=== PATIENT | male | born 1960 | race African-American/Black ===

== ENCOUNTER 2017-05-01 14:23 | Emergency (ER) | payer BC ==
[~2017-05-01] VITALS: Ht 182.9 cm; Wt 79.4 kg
--- NOTE | 2017-05-01 15:35 | RAD ---
Indication pain associated with an injury. AP oblique and lateral views of the right knee were obtained as well as a sunrise view. The patella is not well seen on the sunrise view. There is a somewhat" high riding" patella. This likely reflects a normal variant. If a tendon rupture is clinically suspect an MRI examination would be advised. A definite acute bony abnormality is not seen
[2017-05-01 15:47] VITALS: BP 124/77
--- NOTE | 2017-05-01 16:00 | PHYS DOC ---
Past Medical History Past Medical History: No Pertinent History Past Surgical History: No Surgical History Alcohol Use: Occasionally Drug Use: None Adult General Chief Complaint Chief Complaint: KNEE INJURY HPI HPI Patient is a 57 year old male who presents with right knee injury. The patient states just prior to arrival an aerator fell against his thigh just above his knee. He had sudden onset of severe patellar pain. He denies other injuries. He was able to bear weight. No previous knee surgery. Review of Systems Review of Systems Constitutional: Denies fever or chills Respiratory: Denies cough or shortness of breath Cardiovascular: Denies chest pain GI: Denies abdominal pain, nausea, vomiting Musculoskeletal: Reports knee pain Integument: Denies rash Neurologic: Denies headache Allergies Allergies Allergies Coded Allergies Type Severity Reaction Last Updated Verified No Known Drug Allergies 05/01/17 No Physical Exam Physical Exam Constitutional: Well developed, well nourished, no acute distress, non-toxic appearance. HENT: Normocephalic, atraumatic, bilateral external ears normal, oropharynx moist, nose normal. Eyes: conjunctiva normal, no discharge. Cardiovascular: no edema. Lungs & Thorax: no respiratory distress. Abdomen: nondistended. Skin: Warm, dry, no erythema, no rash. Extremities: right knee moderate effusion with high riding patella otherwise no deformity, tenderness over medial & lateral joint lines, negative anterior & posterior drawer, stable to valgus/varus stress, dp/pt 2+, sensation intact to foot, unable to straight leg raise. Neurologic: Alert and oriented X 3, no focal deficits noted. Psychologic: Affect normal, judgement normal, mood normal. Current Patient Data Vital Signs Vital Signs Date Time Temp Pulse Resp B/P (MAP) Pulse Ox O2 Delivery O2 Flow Rate FiO2 05/01/17 15:47 76 124/77 (93) 98 Room Air 05/01/17 14:35 98.2 16 98.2 EKG EKG [] Radiology/Procedures Radiology/Procedures PROCEDURE: KNEE RIGHT 4V Indication pain associated with an injury. AP oblique and lateral views of the right knee were obtained as well as a sunrise view. The patella is not well seen on the sunrise view. There is a somewhat" high riding" patella. This likely reflects a normal variant. If a tendon rupture is clinically suspect an MRI examination would be advised. A definite acute bony abnormality is not seen DICTATED and SIGNED BY: SHARITA PAIZ MD DATE: 05/01/17 1530[] Course & Med Decision Making Course & Med Decision Making Pertinent Labs and Imaging studies reviewed. (See chart for details) The patient presents with right knee pain. He had exam concerning for patellar tendon injury which is consistent with x-ray findings. The patient declined pain medication here or at time of discharge. Discussed briefly with Dr. Nash , no need for additional imaging at this time & okay to bear weight as tolerated. public health sanitarian technician placed knee immobilizer, remains neurovascularly intact after splint placement as confirmed by me. He was given crutches for PRN use. Recommend rest, ice, elevate, weight bearing as tolerated, follow up in orthopedic clinic in 1 week. Come back for neurovascular compromise or otherwise worsening condition. Discharged home in stable condition. [] Dragon Disclaimer Dragon Disclaimer This electronic medical record was generated, in whole or in part, using a voice recognition dictation system. Departure Departure Impression: Primary Impression: Patellar tendon rupture Disposition: ADMITTED INPATIENT Condition: STABLE Referrals: NO PCP (PCP) YAS NASH II, MD Patient Instructions: Patellar Tendon Tear/Disruption with Rehab-Sports[facility] Additional Instructions: You were seen in the emergency department today for knee injury. You have a tendon rupture of your patellar tendon. You may need to have surgery. Please rest, apply ice, elevate, wear the brace, use crutches if needed. You can bear weight if able. Take tylenol or ibuprofen for pain. Follow up with Dr. Nash in the orthopedic clinic in 1 week. Come back for numbness or weakness in your leg, any otherwise worsening condition. NATHANAEL QUEEN MD May 01, 2017 16:00
== END 2017-05-01 16:10 | disposition home or self-care (01) ==
LOC: ER 14:23
DX: S76.111A Strain of right quadriceps muscle, fascia and tendon, initial encounter (principal); W18.39XA Other fall on same level, initial encounter; Y93.89 Activity, other specified; Y92.89 Other specified places as the place of occurrence of the external cause; Y99.8 Other external cause status
CPT/HCPCS: 29505; 73564; 99285-25

== ENCOUNTER → 2018-12-15 | Day surgery (SDC) | payer BC ==
[~2018-12-15] MED LIST: HYDROmorphone 2 MG/ML VIAL IV PRN; IV RINGERS,LACTATED 1000ML 1,000 ML IV SCH; LIDOCAINE 2% PF 5 ML VIAL. ONE; MORPHINE SULFATE 2 MG/ML VIAL. IV PRN; MULT1TAB52 PO; ONDANSETRON PF 4 MG/2 ML VIAL. IV PRN; PROCHLORPERAZINE 10 MG/2 ML VIAL. IV PRN; PROPOFOL 40 ML IV ONE; fentaNYL PF VIAL 100 MCG/2 ML VIAL IV PRN
[2018-12-15 07:53] VITALS: BP 113/75
--- NOTE | 2018-12-15 21:37 | CONS ---
DATE OF CONSULTATION: 12/15/2018 REFERRING PHYSICIAN: Philipp Mendoza MD. REASON FOR CONSULTATION: Colorectal screening. HISTORY OF PRESENT ILLNESS: A 57-year-old male with past medical history significant only for patellar tendon rupture, seen for screening colon exam. Bowel habits are regular without diarrhea or constipation. There has been no melena and/or hematochezia. Weight and appetite are stable. Family history is unrevealing for colon cancer, colon polyps as well without additional complaints. PAST MEDICAL HISTORY: Patellar tendon tear. ALLERGIES: None. MEDICATIONS: Multivitamin daily. SOCIAL HISTORY: Nonsmoker, social drinker. FAMILY HISTORY: Significant for high blood pressure with his father, stroke with his father and diabetes with grandmother. REVIEW OF SYSTEMS: As per records. PHYSICAL EXAMINATION: GENERAL: This is a well-nourished, well-developed male who is alert, cooperative, in no acute distress. VITAL SIGNS: Temperature 97.7, pulse 57, respiratory rate 18. HEENT: Reveals normocephalic, atraumatic head. Pupils and extraocular muscles are not tested. Sclerae anicteric. NECK: Supple. LUNGS: Clear. CARDIOVASCULAR: S1, S2 without S3, S4 or appreciable murmur. ABDOMEN: Reveals soft abdomen, normal bowel sounds, without appreciable hepatosplenomegaly. EXTREMITIES: Reveals no cyanosis, clubbing, edema. IMPRESSION: Colorectal screening is warranted at this time. Risks and benefits have been discussed with the patient including risk of hemorrhage and perforation. The patient is willing to proceed. I would like to thank, Dr. Mendoza, for allowing us to consult and participate in this patient's care. TIFFANIE MUÑOZ MD DR: ABENR/angel JOB#: [id number] / [id number] Philipp Alegria MD
== END | disposition home or self-care (01) ==
LOC: ENDOS 05:54
PROVIDERS: ATTEND Internal Medicine Gastroenterology
DX: Z12.11 Encounter for screening for malignant neoplasm of colon (principal); K64.0 First degree hemorrhoids; Z98.890 Other specified postprocedural states; Z79.899 Other long term (current) drug therapy; Z82.49 Family history of ischemic heart disease and other diseases of the circulatory system; Z83.3 Family history of diabetes mellitus; Z72.89 Other problems related to lifestyle
CPT/HCPCS: 45378; J2001; J2704